=== PATIENT | male | born 2000 | race African-American/Black ===

== ENCOUNTER 2024-03-12 15:22 | Emergency (ER) | payer OTHER ==
[~2024-03-12] VITALS: Ht 190.5 cm; Wt 75.0 kg
[2024-03-12] MEDS ORDERED: LORazepam 2 MG/ML 1ML VIAL IV PRN (15:35)
[2024-03-12] MEDS: levETIRAcetam INJection 1,000 MG in D5W 100 ML IV ONE (16:19)
[2024-03-12 16:21] LABS: BASO # 0.1 10^3/uL (0.0-0.2); BASO % 0.6 % (0.0-1.0); EOS # 0.4 10^3/uL (0.0-0.5); EOS % 4.8 % (0.0-3.0); HEMATOCRIT 43.3 % (42.0-52.0); HEMOGLOBIN 15.1 g/dl (13.5-17.5); LYMPH # 1.5 10^3/uL (1.5-5.0); LYMPH % 17.2 % (24.0-44.0); MEAN CORPUSCULAR HEMOGLOBIN 31.7 pg (27.0-33.0); MEAN CORPUSCULAR HGB CONC 34.9 g/dl (32.0-36.5); MEAN CORPUSCULAR VOLUME 90.8 fl (80.0-96.0); MONO # 0.4 10^3/uL (0.0-0.8); MONO % 4.4 % (2.0-8.0); NEUTROPHILS # 6.4 10^3/uL (1.5-8.5); NEUTROPHILS % 72.4 % (36.0-66.0); PLATELET COUNT, AUTOMATED 231 10^3/uL (150-450); RED BLOOD COUNT 4.77 10^6/uL (4.30-6.10); WHITE BLOOD COUNT 8.8 10^3/uL (4.0-10.0)
[2024-03-12 16:45] LABS: ETHYL ALCOHOL (ETHANOL) < 0.003 % (0.000-0.010)
[2024-03-12 16:47] LABS: ALKALINE PHOSPHATASE 61 U/L (46-116); ALT/SGPT 24 U/L (7.0-40); AST/SGOT 14 U/L (<34); BILIRUBIN,DIRECT 0.4 MG/DL (<0.4); BILIRUBIN,TOTAL 0.5 MG/DL (0.3-1.2); BLOOD UREA NITROGEN 10 MG/DL (9-23); CALCIUM LEVEL 9.2 MG/DL (8.5-10.1); CARBON DIOXIDE LEVEL 29 MMOL/L (20-31); CHLORIDE LEVEL 106 MMOL/L (98-107); CREATININE FOR GFR 0.81 MG/DL (0.70-1.30); GLOMERULAR FILTRATION RATE > 60.0 (>60); GLUCOSE, FASTING 94 MG/DL (60-100); POTASSIUM SERUM 3.6 MMOL/L (3.5-5.1); SODIUM LEVEL 139 MMOL/L (136-145); TOTAL PROTEIN 7.1 G/DL (5.7-8.2)
[2024-03-12 18:38] VITALS: BP 123/80; TEMP 98.6; O2SAT 98
[2024-03-17 03:32] LABS: LEVETIRACETAM (KEPPRA) < 2.0 mcg/mL (6.0-46.0)
[2024-03-18 19:52] LABS: TOPIRAMATE LEVEL < 0.5 mcg/mL (see note)
== END 2024-03-12 18:40 | disposition home or self-care (01) ==
LOC: M ED 15:22
DX: R56.9 Unspecified convulsions (principal); Z91.199 Patient's noncompliance with other medical treatment and regimen due to unspecified reason; F32.9 Major depressive disorder, single episode, unspecified; Z88.8 Allergy status to other drugs, medicaments and biological substances
CPT/HCPCS: 80048; 80076; 80177; 80201; 82077; 82140; 83605; 83735; 85025; 93041; 94760; 96365; 99284; J1953

== ENCOUNTER 2025-01-25 16:26 | Emergency (ER) | payer OTHER ==
[~2025-01-25] VITALS: Ht 190.5 cm; Wt 70.7 kg
[2025-01-25 16:32] VITALS: BP 135/74; TEMP 97.3; O2SAT 96
== END 2025-01-25 21:48 | disposition left against medical advice (07) ==
LOC: M ED 16:26
DX: Z53.21 Procedure and treatment not carried out due to patient leaving prior to being seen by health care provider (principal)